=== PATIENT | male | born 1975 | race American Indian/Alaskan Native ===

== ENCOUNTER 2016-07-12 23:22 | Emergency (ER) | payer SELFPAY ==
[2016-07-12 23:40] VITALS: BP 174/115
[2016-07-13 00:16] LABS: Basophils % (Auto) 0.4 % (0.0-1.8); Hemoglobin 15.4 gm/dl (11.8-15.2); Mean Corpuscular HGB Conc 34 % (32-34); Mean Corpuscular Hemoglobin 31 pg (28-32); Mean Corpuscular Volume 93 fl (84-94); Platelet Count 214 K/mm3 (140-440); Red Blood Count 4.93 M/mm3 (3.65-5.03); Red Cell Distribution Width 14.2 % (13.2-15.2); White Blood Count 9.5 K/mm3 (4.5-11.0)
[2016-07-13 00:36] LABS: Anion Gap 20 mmol/L; BUN/Creatinine Ratio 12.72; Blood Urea Nitrogen 14 mg/dL (9-20); Carbon Dioxide 25 mmol/L (22-30); Chloride 99.6 mmol/L (98-107); Glucose 122 mg/dL (75-100); Potassium 3.9 mmol/L (3.6-5.0); Sodium 141 mmol/L (137-145)
[2016-07-13 00:38] LABS: Bilirubin,Urine NEG (Negative); Blood,Urine MOD (Negative); Ketones,Urine NEG (Negative); Leukocyte Esterase,Urine LG (Negative); Mucus,Urine FEW /HPF; Nitrite,Urine NEG (Negative); Protein,Urine <15 mg/dL mg/dL (Negative); Urobilinogen,Urine < 2.0 mg/dL (<2.0)
--- NOTE | 2016-07-17 00:56 | ED Elopement Review ---
ED Pt Elopement review - Results review Lab results: Laboratory Tests 07/12/16 07/12/16 07/13/16 23:57 23:57 00:16 WBC 9.5 RBC 4.93 Hgb 15.4 H Hct 46.0 H MCV 93 MCH 31 MCHC 34 RDW 14.2 Plt Count 214 Lymph % (Auto) 24.9 [place] % (Auto) 9.5 H Eos % (Auto) 3.0 Baso % (Auto) 0.4 Lymph # 2.4 [place] # 0.9 H Eos # 0.3 Baso # 0.0 Seg Neutrophils % 62.2 Seg Neutrophils # 5.9 Sodium 141 Potassium 3.9 Chloride 99.6 Carbon Dioxide 25 Anion Gap 20 BUN 14 Creatinine 1.1 Estimated GFR > 60 BUN/Creatinine Ratio 12.72 Glucose 122 H Calcium 10.0 Troponin T < 0.010 Urine Color Yellow Urine Turbidity Clear Urine pH 5.0 Ur Specific [place] 1.027 Urine Protein <15 mg/dl Urine Glucose (UA) Neg Urine Ketones Neg Urine Blood Mod Urine Nitrite Neg Urine Bilirubin Neg Urine Urobilinogen < 2.0 Ur Leukocyte Esterase Lg Urine WBC (Auto) 26.0 H Urine RBC (Auto) 9.0 U Epithel Cells (Auto) 1.0 Hyaline Casts 5 Urine Mucus Few 07/13/16 03:02 WBC RBC Hgb Hct MCV MCH MCHC RDW Plt Count Lymph % (Auto) [place] % (Auto) Eos % (Auto) Baso % (Auto) Lymph # [place] # Eos # Baso # Seg Neutrophils % Seg Neutrophils # Sodium Potassium Chloride Carbon Dioxide Anion Gap BUN Creatinine Estimated GFR BUN/Creatinine Ratio Glucose Calcium Troponin T < 0.010 Urine Color Urine Turbidity Urine pH Ur Specific [place] Urine Protein Urine Glucose (UA) Urine Ketones Urine Blood Urine Nitrite Urine Bilirubin Urine Urobilinogen Ur Leukocyte Esterase Urine WBC (Auto) Urine RBC (Auto) U Epithel Cells (Auto) Hyaline Casts Urine Mucus elevated bp, white cells in urine - Call Back decision Pt Call Back Decision: Pt to F/U with PMD (follow up with doctor, elevated BP, Chest pain, WBC in urine. needs eval, if sx continue and no pmd may return for eval)
== END 2016-07-13 04:30 | disposition left against medical advice (07) ==
LOC: ED 23:22
DX: R07.9 Chest pain, unspecified (principal); Z53.21 Procedure and treatment not carried out due to patient leaving prior to being seen by health care provider
CPT/HCPCS: 36415; 80048; 81001; 84484; 85025; 93005; 93010

== ENCOUNTER 2016-11-29 12:18 | Emergency (ER) | payer OTHER ==
[2016-11-29 13:39] LABS: Basophils % (Auto) 0.3 % (0.0-1.8); Eosinophils % (Auto) 1.6 % (0.0-4.3); Hematocrit 50.9 % (35.5-45.6); Hemoglobin 16.9 gm/dl (11.8-15.2); Mean Corpuscular HGB Conc 33 % (32-34); Mean Corpuscular Hemoglobin 33 pg (28-32); Mean Corpuscular Volume 100 fl (84-94); Platelet Count 203 K/mm3 (140-440); Red Blood Count 5.12 M/mm3 (3.65-5.03); Red Cell Distribution Width 15.2 % (13.2-15.2); White Blood Count 11.6 K/mm3 (4.5-11.0)
[2016-11-29 13:46] LABS: Anion Gap 21 mmol/L; Blood Urea Nitrogen 13 mg/dL (9-20); Calcium 8.7 mg/dL (8.4-10.2); Carbon Dioxide 24 mmol/L (22-30); Chloride 98.5 mmol/L (98-107); Glucose 86 mg/dL (75-100); Potassium 3.9 mmol/L (3.6-5.0); Sodium 140 mmol/L (137-145)
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
[2016-11-29] MEDS ORDERED: TORADOL IV ONE (21:24)
[2016-11-29] MEDS ORDERED: ATROVENT IH ONE (21:24)
[2016-11-29] MEDS ORDERED: PROVENTIL IH ONE (21:24)
[2016-11-29 21:36] LABS: INR 0.95 (0.87-1.13)
[2016-11-29 21:37] LABS: Partial Thromboplastin Time 29.2 Sec. (24.2-36.6)
[2016-11-29 21:47] LABS: Bilirubin,Urine NEG (Negative); Blood,Urine MOD (Negative); Ketones,Urine NEG (Negative); Leukocyte Esterase,Urine LG (Negative); Mucus,Urine FEW /HPF; Nitrite,Urine NEG (Negative)
[2016-11-29] MEDS ORDERED: VIBRAMYCIN PO ONE (22:01)
[2016-11-29] MEDS ORDERED: ROCEPHIN 250 MG in NACL 0.9% 50 ML IV ONE (22:01)
[2016-11-29] MEDS ORDERED: TYLENOL PO ONE (23:19)
[2016-11-29 23:46] VITALS: BP 151/81
--- NOTE | 2016-11-30 08:22 | XRay Report ---
CHEST 2 VIEWS INDICATION: Chest pain. COMPARISON: 01/03/2016 FINDINGS: PA and lateral chest radiographs demonstrate stable cardiomediastinal silhouette, post CABG changes, clear lungs and intact bones. Borderline pulmonary arterial hypertension not excluded. EKG leads. CONCLUSION: No acute disease, as described. Thank you for the opportunity to participate in this patient's care.
== END 2016-11-29 23:45 | disposition home or self-care (01) ==
LOC: ED 12:18
DX: J40 Bronchitis, not specified as acute or chronic (principal); J06.9 Acute upper respiratory infection, unspecified; I10 Essential (primary) hypertension; I50.9 Heart failure, unspecified; J44.9 Chronic obstructive pulmonary disease, unspecified; F17.200 Nicotine dependence, unspecified, uncomplicated; F12.10 Cannabis abuse, uncomplicated
CPT/HCPCS: 36415; 71020; 80048; 81001; 82550; 83880; 84484; 85025; 85610; 85730; 87086; 87591; 93005; 93010; 94644; 96365; 96375; 99285; J0696; J1885; J2930